=== PATIENT | female | born 1985 | race Caucasian/White ===

== ENCOUNTER 2019-03-05 20:58 | Emergency (ER) | payer BC, MEDICAID ==
[~2019-03-05] VITALS: Ht 160 cm; Wt 53.1 kg
[2019-03-05 21:04] VITALS: BP 132/79
--- NOTE | 2019-03-05 21:04 | NUR ---
TO ER BED 7
--- NOTE | 2019-03-05 21:15 | NUR ---
US AT BEDSIDE.
--- NOTE | 2019-03-05 21:20 | NUR ---
34 YO F BIB SELF PRESENTS TO THE ED C/O 3/10 BURNING EPIGASTRIC PAIN AND STOMACH CRAMPS WITH N/V SINCE THIS MORNING. PT STATES SHE HASN'T BEEN ABLE TO KEEP ANY FOODS OR FLUIDS DOWN. DENIES FEVER, BUT REPORTS CHILLS. BOWEL MOVEMENTS NORMAL. LAST BM: THIS MORNING. PT ALSO STATES SHE IS 8 WEEKS . DENIES VAG BLEEDING. -- ABD SOFT, FLAT, NON-TENDER. BOWEL SOUNDS PRESENT, ACTIVE IN ALL 4 QUADRANTS. NO REBOUND TENDERNESS NOTED. -- SKIN PINK, DRY, WARM. PT IS ALERT, CALM, COOPERATIVE, BEHAVIOR APPROPRIATE. VSS. NO APPARENT DISTRESS AT THIS TIME. PT POSITIONED FOR COMFORT. HOB ELEVATED. SIDE RAIL UP X1. BED IN LOWEST POSITION.
[2019-03-05 21:46] LABS: APPEARANCE,URINE CLEAR (CLEAR); BILIRUBIN,URINE 1+ (NEGATIVE); BLOOD, URINE NEGATIVE (NEGATIVE); COLOR,URINE YELLOW (YELLOW); LEUKOCYTE ESTERASE ,URINE NEGATIVE (NEGATIVE); NITRITE, URINE NEGATIVE (NEGATIVE); UGLUCOSE NEGATIVE (NEGATIVE)
--- NOTE | 2019-03-05 22:00 | NUR ---
LAB AT BEDSIDE.
[2019-03-05 22:04] LABS: HEMATOCRIT 38.6 % (36-48); HEMOGLOBIN 12.6 g/dL (12.0-16.0); MEAN CORPUSCULAR HEMOGLOBIN 27 pg (27-31); MEAN CORPUSCULAR HGB CONC 33 g/dL (33-37); MEAN CORPUSCULAR VOLUME 82.2 fL (80-94); PLATELET COUNT (AUTO) 364 K/uL (140-450); RED CELL DISTRIBUTION WIDTH 15.2 % (11.6-13.7); WHITE BLOOD COUNT (AUTO) 14.7 K/uL (4.8-10.8)
[2019-03-05 22:19] LABS: EOSINOPHILS % (MANUAL) 2 % (0-4); LYMPHOCYTES % (MANUAL) 2 % (20-46)
[2019-03-05 22:25] LABS: ANION GAP 12.1 (8-16); CARBON DIOXIDE 25.5 mmol/L (21-32); CREATININE 0.6 mg/dL (0.6-1.3); POTASSIUM 3.6 mmol/L (3.5-5.1)
[2019-03-05 22:31] LABS: ALBUMIN 3.2 g/dL (3.4-5.0); TOTAL BILIRUBIN 0.6 mg/dL (0.0-1.0)
[2019-03-05] MEDS ORDERED: NACL 0.9% 1,000 ML IV ONE (23:10)
[2019-03-05] MEDS ORDERED: METOCLOPRAMIDE 10 MG/2 ML INJ VIAL IVP ONE (23:10)
[2019-03-06 00:53] VITALS: BP 122/96
== END 2019-03-06 00:44 | disposition home or self-care (01) ==
LOC: MED 20:58
DX: O99.611 Diseases of the digestive system complicating pregnancy, first trimester (principal); K52.9 Noninfective gastroenteritis and colitis, unspecified; Z88.6 Allergy status to analgesic agent; Z3A.08 8 weeks gestation of pregnancy
CPT/HCPCS: 36415; 76801; 80053; 81003; 81025; 83690; 84702; 85025; 96361; 96374; 99284; J2765; J7030; Q0092

== ENCOUNTER 2022-03-17 21:40 | Emergency (ER) | payer OTHER, MEDICAID ==
[~2022-03-17] VITALS: Ht 152.4 cm; Wt 53.1 kg
[2022-03-17 21:48] VITALS: BP 129/92
--- NOTE | 2022-03-17 22:29 | NUR ---
PT TAKEN TO BED 6
[2022-03-17] MEDS ORDERED: IBUPROFEN 800 MG TAB PO ONE (22:55)
[2022-03-17] MEDS ORDERED: AMOXICILLIN 500 MG CAP PO ONE (22:55)
[2022-03-17] MEDS ORDERED: ONDANSETRON 4 MG TAB PO ONE (22:55)
--- NOTE | 2022-03-17 23:19 | NUR ---
COVID AND FLU COLLECTED AND GIVEN TO [facility] RENTAL CLERK TOOL AND EQUIPMENT.
--- NOTE | 2022-03-17 23:40 | NUR ---
PT STATES FEVER (102 AT HOME) . THROAT PAIN , HEADACHE (FRONT OF HEAD) NAUSEA X 1 DAY. DENIES V/D/ COUGH. PT STATES PAIN /. PT TOOK MOTRIN FOR PAIN, PT STATES SHE SUFFERS FROM CHRONIC MIGRAINS. PMH: PRE-HTN, AND CHRONIC MIGRANES SKIN IS PINK/WARM/DRY; AAOX4 WITH EVEN AND STEADY GAIT; PT TOOK IBUPROFEN FOR PAIN . ALLERGIC TO ACETAMETAPHIN
[2022-03-18] MEDS ORDERED: IBUP-2218 PO (00:39)
[2022-03-18] MEDS ORDERED: AMOX-999 PO (00:39)
[2022-03-18] MEDS ORDERED: ONDA-188 SL (00:40)
[2022-03-18 01:22] VITALS: BP 129/92
--- NOTE | 2022-03-18 01:22 | NUR ---
Patient discharged with v/s stable. Written and verbal after care instructions given and explained. Patient alert, oriented and verbalized understanding of instructions. Ambulatory with steady gait. All questions addressed prior to discharge. ID band removed. Patient advised to follow up with PMD. Rx of Amoxicillin, Ibuprofen and Zofran given. Patient educated on indication of medication including possible reaction and side effects. Opportunity to ask questions provided and answered.
--- NOTE | 2022-03-18 01:32 | NUR ---
The patient's care was reviewed and supervised by Diane Orellana RN.
== END 2022-03-18 01:22 | disposition home or self-care (01) ==
LOC: MED 21:40
DX: B34.9 Viral infection, unspecified (principal); Z20.822 Contact with and (suspected) exposure to COVID-19; Z79.899 Other long term (current) drug therapy; Z88.6 Allergy status to analgesic agent
CPT/HCPCS: 86308; 87426; 87804; 99284; Q0162

== ENCOUNTER 2022-04-15 07:11 | Emergency (ER) | payer OTHER, MEDICAID ==
[~2022-04-15] VITALS: Ht 152.4 cm; Wt 52.2 kg
[~2022-04-15 07:11] MED LIST: AMOX-999 PO; IBUP-2218 PO; ONDA-188 SL
[2022-04-15 07:16] VITALS: BP 141/98
--- NOTE | 2022-04-15 07:22 | NUR ---
PATIENT AMBULATED TO BED 12.
[2022-04-15] MEDS ORDERED: LIDOCAINE MPF 1% 10 MG/ML VIAL INJ ONE (07:55)
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
[2022-04-15 08:38] VITALS: BP 141/98
--- NOTE | 2022-04-15 08:38 | NUR ---
right hand 2nd digit dressed with bandaid at this time
--- NOTE | 2022-04-15 08:39 | NUR ---
Patient discharged with v/s stable. Written and verbal after care instructions given and explained. Patient verbalized understanding. Ambulatory with steady gait. All questions addressed prior to discharge. Advised to follow up with PMD.
== END 2022-04-15 08:39 | disposition home or self-care (01) ==
LOC: MED 07:11
DX: S61.210A Laceration without foreign body of right index finger without damage to nail, initial encounter (principal); Z88.6 Allergy status to analgesic agent; Z79.899 Other long term (current) drug therapy; Z98.890 Other specified postprocedural states; W45.8XXA Other foreign body or object entering through skin, initial encounter; Y93.89 Activity, other specified; Y92.89 Other specified places as the place of occurrence of the external cause; Y99.8 Other external cause status
CPT/HCPCS: 12001; 90471; 90715; 99283; J2001

== ENCOUNTER 2022-08-27 08:48 | Emergency (ER) | payer OTHER, MEDICAID ==
[~2022-08-27] VITALS: Ht 157.5 cm; Wt 56.7 kg
[2022-08-27 08:50] VITALS: BP 161/115
--- NOTE | 2022-08-27 08:53 | NUR ---
Patient ambulated with steady gait to bed 7.
--- NOTE | 2022-08-27 09:22 | NUR ---
Dr. Ortega at bedside evaluating patient.
[2022-08-27] MEDS ORDERED: PROCHLORPERAZINE 10 MG/2 ML VIAL IM ONE (09:25)
[2022-08-27] MEDS ORDERED: KETOROLAC 60 MG/2 ML VIAL IM ONE (09:25)
[2022-08-27] MEDS ORDERED: IBUP-1842 PO (11:08)
[2022-08-27] MEDS ORDERED: PROC-62 PO (11:08)
[2022-08-27 11:24] VITALS: BP 107/63
== END 2022-08-27 08:52 | disposition home or self-care (01) ==
LOC: MED 08:48
DX: G43.909 Migraine, unspecified, not intractable, without status migrainosus (principal); Z88.5 Allergy status to narcotic agent
CPT/HCPCS: 96372; 99284; J0780; J1885

== ENCOUNTER 2023-12-13 20:26 | Emergency (ER) | payer MEDICAID, OTHER ==
[~2023-12-13] VITALS: Ht 172.7 cm; Wt 51.3 kg
[~2023-12-13 20:26] MED LIST changes: +IBUP-1842 PO; +PROC-87 PO
[2023-12-13 20:41] VITALS: BP 164/111; PULSE 90; RESP 18; TEMP 97.4; O2SAT 98
[2023-12-13 20:48] VITALS: RESP 18; TEMP 97.4; O2SAT 98
[2023-12-13] MEDS ORDERED: ENALAPRILAT 2.5 MG/2 ML VIAL IVP ONE (20:55)
[2023-12-13] MEDS ORDERED: MORPHINE SULFATE 4 MG/ML SYR IVP ONE (20:55)
[2023-12-13 21:29] VITALS: BP 161/108; PULSE 78
[2023-12-13] MEDS ORDERED: LISI40TA12 PO (21:39)
[2023-12-13] MEDS ORDERED: [UNRECOGNIZED DRUG - CODE] PO (21:39)
== END 2023-12-13 22:00 | disposition home or self-care (01) ==
LOC: MED 20:26
DX: M25.511 Pain in right shoulder (principal); I10 Essential (primary) hypertension; Z79.899 Other long term (current) drug therapy; Z88.5 Allergy status to narcotic agent
CPT/HCPCS: 96374; 96375; 99284; J2270; J3490